=== PATIENT | male | born 1975 | race Caucasian/White ===

== ENCOUNTER 2021-07-03 14:45 | Inpatient (IN) | payer MEDICAID, SELFPAY ==
[2021-07-03 14:46] VITALS: BP 125/102; PULSE 87; RESP 16; TEMP 37.1; O2SAT 98; BMI 21.6
--- NOTE | 2021-07-03 18:27 | EX.ED.SAOD ---
HPI History of Present Illness Chief Complaint: Substance Abuse Informant: patient Narrative Narrative: Patient is a 46-year-old male with history of alcohol dependency presenting for alcohol withdrawal. Patient states he normally drinks 12 pack of tall boy Son light a day. Patient dates his last drink was at 2 PM today and was a can of Son light. Patient states that he has been in rehab 3 times in the last 1 was 2 years ago. He does have a history of delirium tremens, seizures and shaking. He states he wants to quit drinking because he is try to get a new job and is tired of shaking. He smokes a pack and half cigarettes a day. Denies any illicit drug use. He has no other complaints at this time. [facility] Medical History Alcohol abuse Allergy/AdvReac Type Severity Reaction Status Date / Time No Known Allergies Allergy Verified 07/03/21 14:48 Family History (Updated 07/03/21 @ 19:[address] Fly Regan MD) Other Epilepsy Surgical History (Updated 07/03/21 @ 19:[address] Fly Regan MD) History of herniorrhaphy Surgical History no surgical history Social History Smoking Status: Current every day smoker tobacco type: cigarettes ROS ROS ED Constitutional Constitutional ED: Denies chills or fever(s) Eyes Eyes: Denies change in vision ENT ENT ED: Denies ear pain Cardiovascular Cardiovascular: Denies chest pain Respiratory/Chest Respiratory/Chest: Denies cough or dyspnea Gastrointestinal Gastrointestinal: Denies abdominal pain or nausea Genitourinary Genitourinary ED: Denies dysuria Musculoskeletal Musculoskeletal: Denies arthralgias or myalgias Integumentary Denies rash Neurologic Neurologic: Denies headache(s) Psychiatric Psychiatric: Denies anxiety or depression EXAM Physical Exam Const Vital Signs: 07/03/21 14:46 Temperature 98.7 F Temperature Source Temporal Pulse Rate 87 Respiratory Rate 16 Blood Pressure 125/102 H Blood Pressure Mean 109 Pulse Ox 98 Oxygen Delivery Method Room Air Positive well nourished and well developed General Appearance ED: well developed HEENT Reports moist mucous membranes atraumatic Eyes PERRL and EOMs intact bilaterally Neck supple Resp normal respiratory effort and clear to auscultation bilaterally Cardio regular rate, regular rhythm and no murmurs GI soft to palpation, non-tender and non-distended Back/Spine no CVA tenderness Neuro oriented x3 and CN's II-XII intact bilaterally Sensorium / Orientation: alert Motor Exam: Negative for general weakness Psych mental status grossly normal and thought process normal Skin Skin Narrative: Patient has hypopigmentation of the hands and scattering of the extremities. States is been there for 5 years Lesions: no lesions Rashes: no rashes MDM MDM MDM Narrative Medical decision making narrative: Patient is evaluated for alcohol detox. He does not appear to be actively withdrawing. He is given a NicoDerm patch. Screening labs obtained. Patient is excepted to detox. Lab Data Attestation: I reviewed the patient's lab results. Labs: Laboratory Results - last 24 hr 07/03/21 07/03/21 07/03/21 18:10 18:10 18:10 WBC 6.3 RBC 4.13 L Hgb 13.8 Hct 40.7 MCV 98.5 H MCH 33.4 H MCHC 33.9 RDW Std Deviation 45.3 H RDW Coeff of Nya 12.4 Plt Count 432 MPV 8.5 Immature Gran % (Auto) 0.500 Neut % (Auto) 63.1 Lymph % (Auto) 23.1 [place] % (Auto) 10.1 H Eos % (Auto) 2.4 Baso % (Auto) 0.8 Absolute Neuts (auto) 4.0 Absolute Lymphs (auto) 1.46 Nucleated RBC % 0 Sodium Cancelled Potassium Cancelled Chloride Cancelled Carbon Dioxide Cancelled Anion Gap Cancelled BUN Cancelled Creatinine Cancelled Estim Creat Clear Calc Cancelled Est GFR (MDRD) Af Amer Cancelled Est GFR (MDRD) Non-Af Cancelled BUN/Creatinine Ratio Cancelled Glucose Cancelled Calcium Cancelled Total Bilirubin Direct Bilirubin AST ALT Alkaline Phosphatase Total Protein Albumin Globulin Albumin/Globulin Ratio Urine Opiates Screen Urine Methadone Screen Ur Barbiturates Screen Ur Phencyclidine Scrn Ur Amphetamines Screen U Methamphetamin-MDMA U Benzodiazepines Scrn Urine Cocaine Screen U Cannabinoids Screen Ur Drug Screen Comment Ethyl Alcohol 94.0 07/03/21 07/03/21 07/03/21 18:10 18:15 18:26 WBC RBC Hgb Hct MCV MCH MCHC RDW Std Deviation RDW Coeff of Nya Plt Count MPV Immature Gran % (Auto) Neut % (Auto) Lymph % (Auto) [place] % (Auto) Eos % (Auto) Baso % (Auto) Absolute Neuts (auto) Absolute Lymphs (auto) Nucleated RBC % Sodium 138 Potassium 3.9 Chloride 105 Carbon Dioxide 23.0 Anion Gap 10 BUN 3 L Creatinine 0.63 L Estim Creat Clear Calc 145.70 Est GFR (MDRD) Af Amer 175 Est GFR (MDRD) Non-Af 145 BUN/Creatinine Ratio 4.7 L Glucose 83 Calcium 9.4 Total Bilirubin 0.30 0.40 Direct Bilirubin 0.09 AST 31 30 ALT 29 30 Alkaline Phosphatase 96 96 Total Protein 8.0 8.0 Albumin 3.7 3.7 Globulin 4.3 H 4.3 H Albumin/Globulin Ratio 0.9 Urine Opiates Screen NEGATIVE Urine Methadone Screen NEGATIVE Ur Barbiturates Screen NEGATIVE Ur Phencyclidine Scrn NEGATIVE Ur Amphetamines Screen NEGATIVE U Methamphetamin-MDMA NEGATIVE U Benzodiazepines Scrn NEGATIVE Urine Cocaine Screen NEGATIVE U Cannabinoids Screen NEGATIVE Ur Drug Screen Comment Ethyl Alcohol Discharge Plan Triage Chief Complaint: Substance Abuse ED Provider: Tana Pearl Dx/Rx/DC Orders Clinical Impression: Alcohol abuse, Desire for detoxification Primary Care Provider: Care Physician,No Primary Disposition Disposition: Acute Care Hospital [facility]
[2021-07-03 18:29] LABS: Absolute Lymphocyte Count 1.46 X10^3/uL (0.83-4.51); Basophil# 0.05 X10^3/uL; Basophil% 0.8 % (0-1); Eosinophil# 0.15 X10^3/uL; Eosinophils% 2.4 % (0-5); Hematocrit 40.7 % (40-54); Hemoglobin 13.8 g/dL (13.0-16.5); Lymphocyte # 1.46 X10^3/ul (0.83-4.51); Lymphocyte % 23.1 % (19-41); Mean Corp Hgb Conc 33.9 g/dL (32-36); Mean Corpuscular Hgb 33.4 pg (27.0-32.0); Mean Corpuscular Volume 98.5 fL (80-94); Mean Platelet Vol. 8.5 fl (6.2-12.0); Monocyte# 0.64 X10^3/uL; Monocyte% 10.1 % (0-10); NRBC Flagged by Analyzer 0 % (0-5); Neutrophil # 3.99 X10^3/uL (2.7-7.7); Neutrophil % 63.1 % (47-70); Platelet Count 432 K/mm3 (150-450); RBC Distribution Width CV 12.4 % (11.6-14.6); RBC Distribution Width SD 45.3 fl (35.1-43.9); Red Blood Count 4.13 M/mm3 (4.6-6.2); White Blood Count 6.3 K/mm3 (4.4-11.0)
[2021-07-03 18:56] LABS: ALB/GLOB Ratio 0.9 RATIO (0.9-2.4); AST(SGOT) 30 U/L (15-37); Alanine Aminotransfer ALT/SGPT 30 U/L (16-61); Albumin, Serum 3.7 g/dL (3.2-5.0); Alkaline Phosphatase 96 U/L (45-117); Anion Gap 10 (5-15); BUN 3 mg/dL (7-18); BUN/Creat Ratio 4.7 RATIO (10-20); Calcium,Total 9.4 mg/dL (8.5-10.1); Chloride 105 mmol/L (98-107); Creatinine, Serum 0.63 mg/dL (0.70-1.30); EST Glomerular Filtration Rate 145 mL/min (>60); Est Glom Filt Rate - Afr Amer 175 mL/min (>60); Globulin 4.3 g/dL (2.2-4.2); Glucose 83 mg/dL (74-106); Potassium 3.9 mmol/L (3.5-5.1); Sodium Level 138 mmol/L (136-145)
[2021-07-03 18:59] LABS: AST(SGOT) 31 U/L (15-37); Alanine Aminotransfer ALT/SGPT 29 U/L (16-61); Albumin, Serum 3.7 g/dL (3.2-5.0); Alkaline Phosphatase 96 U/L (45-117); Bilirubin, Direct 0.09 mg/dL (0.00-0.30); Globulin 4.3 g/dL (2.2-4.2)
--- NOTE | 2021-07-03 19:08 | HP.PCM.HOS_ITS ---
HPI - General General Date of Admission: 07/03/21 HPI Narrative BRITTA GANN, is a 46 M who presents with a significant history of alcoholism and tobacco abuse who presents to emergency department for desire for detoxification. Patient has been drinking since about age 15. He has been to rehab about 3 times. The last rehab was about 2 years ago. And he was momentarily sober after the last rehab. Reported in the past he has had a seizure from withdrawal. His last drink was few hours before presentation and he denies any withdrawal symptoms at the time of history taking. He denies any past medical history and he denies taking any home medicines. [facility] Medical History Alcohol abuse Seizures Smoker Allergy/AdvReac Type Severity Reaction Status Date / Time No Known Allergies Allergy Verified 07/03/21 20:12 Family History Other Epilepsy Surgical History History of herniorrhaphy Surgical History no surgical history Social History Smoking Status: Current every day smoker tobacco type: cigarettes ROS ROS Narrative Constitutional: Denies fever, chills, fatigue, anorexia and change in weight Eyes: Denies blurry vision, change in eye color, change in vision, discharge from eye(s), double vision, erythema, eye pain, loss of vision or other HEENT: Denies abnormal hearing, dysphagia, ear pain, epistaxis, headache(s), hearing loss, nasal congestion, nasal discharge, post nasal drip, sinus pressure, sore throat or other Cardiovascular: Denies chest pain or palpitations. Denies dyspnea on exertion, orthopnea and paroxysmal nocturnal dyspnea Respiratory/Chest: Denies cough, excessive phlegm production, shortness of breath with exertion and wheezing Gastrointestinal: Denies abdominal pain, coffee ground emesis, constipation, diarrhea, dyspepsia, hematemesis, hematochezia, loose stools, melena, nausea, vomiting or other Genitourinary: Denies burning urination, difficulty urinating, dysuria, h ematuria, nocturia, urinary frequency, urinary hesitancy, urinary incontinence, urinary urgency or other Musculoskeletal: Denies arthralgias, back pain, joint pain, joint stiffness, joint swelling, myalgias, neck pain or other Neurologic: Denies abnormal gait, abnormal speech, confusion, disequilibrium, dizziness, focal weakness, headache(s), numbness, paresthesias, seizure-like activity, seizures, syncope, tingling, tremor(s) or other Psychiatric: Denies anxiety, depression, homicidal ideation, suicidal ideation or other Endocrinology: Denies change in body appearance, cold intolerance, excessive sweating, heat intolerance, polydipsia, polyuria or other Hematologic/Lymphatic: Denies anemia, easy bleeding, easy bruising, lymphadenopathy or other Integumentary: Denies rashes Allergic/Immunologic: Denies rhinitis, hives, eczema, asthma or other Vital Signs Vital Signs Vital Signs: 07/03/21 14:46 Temperature 98.7 F Temperature Source Temporal Pulse Rate 87 Respiratory Rate 16 Blood Pressure 125/102 H Blood Pressure Mean 109 Pulse Ox 98 Oxygen Delivery Method Room Air Weight Weight: 70.307 kg Body Mass Index (BMI) 21.6 Physical Exam Narrative Physical exam: General: Well-nourished, well-developed. Head: Normocephalic, atraumatic, no tenderness Eyes: PERRLA, EOMI ENT, no trauma, moist mucous membranes, no rhinorrhea Neck: Nontender, full range of motion, no spinal tenderness, deformities, step- off CVS: Regular rate and rhythm. S1-S2 present. No murmur, gallop or rub. Respiratory : clear to auscultation bilaterally, chest wall nontender, no wheezing Abdomen: Soft, nontender, nondistended, normal bowel sounds, no masses : Deferred Back: Nontender, no CVA tenderness, no midline spinal tenderness, deformities, step-offs Extremities: Nontender full range of motion, no trauma Skin: Normal color, no trauma, abrasions Neuro: Alert, oriented, cranial nerves II through XII grossly intact. Psychiatry: Normal mood. Normal affect. Not depressed. Not anxious. Results Lab / Micro Data Result Diagrams: 07/03/21 18:10 07/03/21 18:26 Labs: Laboratory Results - last 24 hr 07/03/21 18:10: WBC 6.3, RBC 4.13 L, Hgb 13.8, Hct 40.7, MCV 98.5 H, MCH 33.4 H, MCHC 33.9, RDW Std Deviation 45.3 H, RDW Coeff of Nya 12.4, Plt Count 432, MPV 8.5, Immature Gran % (Auto) 0.500, Neut % (Auto) 63.1, Lymph % (Auto) 23.1, [place] % (Auto) 10.1 H, Eos % (Auto) 2.4, Baso % (Auto) 0.8, Absolute Neuts (auto) 4.0, Absolute Lymphs (auto) 1.46, Nucleated RBC % 0 07/03/21 18:10: Sodium Cancelled, Potassium Cancelled, Chloride Cancelled, Carbon Dioxide Cancelled, Anion Gap Cancelled, BUN Cancelled, Creatinine Cancelled, Estim Creat Clear Calc Cancelled, Est GFR (MDRD) Af Amer Cancelled, Est GFR (MDRD) Non-Af Cancelled, BUN/Creatinine Ratio Cancelled, Glucose Cancelled, Calcium Cancelled 07/03/21 18:10: Total Bilirubin 0.30, Direct Bilirubin 0.09, AST 31, ALT 29, Alkaline Phosphatase 96, Total Protein 8.0, Albumin 3.7, Globulin 4.3 H 07/03/21 18:15: Ur Drug Screen Comment 07/03/21 18:26: Sodium 138, Potassium 3.9, Chloride 105, Carbon Dioxide 23.0, Anion Gap 10, BUN 3 L, Creatinine 0.63 L, Estim Creat Clear Calc 145.70, Est GFR (MDRD) Af Amer 175, Est GFR (MDRD) Non-Af 145, BUN/Creatinine Ratio 4.7 L, Glucose 83, Calcium 9.4, Total Bilirubin 0.40, AST 30, ALT 30, Alkaline Phospha tase 96, Total Protein 8.0, Albumin 3.7, Globulin 4.3 H, Albumin/Globulin Ratio 0.9 Assessment & Plan Assessment/Plan (1) Alcohol abuse: (2) Desire for detoxification: PLAN: Alcohol dependence and desire for detoxification Patient be started on phenobarbital and other adjunctive medications: Gabapentin as needed; dicyclomine as needed; Vistaril as needed; Imodium as needed; tr azodone as needed; Zofran as needed; scheduled thiamine; and schedule folic acid. Monitor CIWA score Urine toxicology was reviewed. Urine toxicology was negative. Alcohol level was 94. Elevated blood pressure diagnosis of hypertension Likely secondary to alcohol withdrawal. As needed metoprolol ordered. If blood pressure remains elevated with as needed metoprolol or start patient on schedule d metoprolol and probably clonidine. Tobacco abuse Counseled Nicotine patch prescribed. DVT prophylaxis Low risk Encourage to ambulate Charges/Coding Visit Charges Inpatient E&M: 90462 Init Hosp L3
[2021-07-03 19:10] VITALS: BP 176/126; PULSE 76; RESP 16; TEMP 37.1; O2SAT 98
[2021-07-03 19:10] LABS: Amphetamine Urine VISTA NEGATIVE (<1000 ng/mL); Barbiturate Urine VISTA NEGATIVE (< 200 ng/mL); Benzodiazepine Urine VISTA NEGATIVE (< 200 ng/mL); Cocaine Urine VISTA NEGATIVE (< 300 ng/mL); Ecstacy Urine VISTA NEGATIVE (< 500 ng/mL); Methadone Urine VISTA NEGATIVE (< 300 ng/mL); PCP Urine VISTA NEGATIVE (< 25 ng/mL); THC Urine VISTA NEGATIVE (< 50 ng/mL); Vista UDS pH Range 6
[2021-07-03 19:13] VITALS: BP 176/116
--- NOTE | 2021-07-03 19:15 | NURSING ---
DR BEACH AWARE OF HIGH BP AND WILL PUTIN ORDERS
--- NOTE | 2021-07-03 19:35 | CM.ED ---
SOCIAL WORK Referral Source: Dr. Pearl Reason for Consult: Substance abuse-requesting detox from alcohol Patient reports drinks 12 pack beer/day. Patient states last drink was prior to arrival. Patient being admitted to [facility]. Addiction Therapist, Milvia notified of admission and will be in tomorrow to assess patient. Plan: JULIÁN Bailey MSW, FIREMAN
[2021-07-03 19:47] VITALS: BP 148/111
[2021-07-03 20:16] VITALS: BP 138/93; PULSE 78; RESP 20; TEMP 37.1; O2SAT 99
[2021-07-03 20:22] VITALS: BMI 21.4
[2021-07-03] MEDS: Phenobarbital 32.4 MG Tablet 64.8 MG PO (20:30)
--- NOTE | 2021-07-03 21:37 | PCS.PANDOC ---
PANDEMIC DOCUMENTATION INITIATED: Date: 02/13/2021 Time: 1900 Emergency documentation initiated 07/03/21 @ 2100
[2021-07-04 01:29] VITALS: BP 132/89; PULSE 75; RESP 16; TEMP 37.1; O2SAT 99
[2021-07-04] MEDS: Phenobarbital 32.4 MG Tablet 64.8 MG PO ×6 (01:30→22:18)
[2021-07-04 05:35] VITALS: BP 140/102; PULSE 60; RESP 16; TEMP 36.8; O2SAT 99
--- NOTE | 2021-07-04 07:41 | PN.HOSP_ITS ---
Subjective Subjective Admitted for alcohol withdrawal symptoms stabilization. Patient is a desire to remain sober. Last rehab about 2 years ago he was sober for small period of time. History of withdrawal seizures in the past. Objective Data Objective Data Vital Signs: Vital Signs Temp Pulse Resp BP Pulse Ox 98.2 F 60 16 140/102 H 99 07/04/21 05:35 07/04/21 05:35 07/04/21 05:35 07/04/21 05:35 07/04/21 05:35 Oxygen Delivery Method Room Air Weight: 153 lb 14.122 oz Body Mass Index (BMI) 21.4 Intake & Output: Intake and Output for Last 24 Hours 07/02/21 07/03/21 07/04/21 23:59 23:59 23:59 Intake Total 600 / 600 Balance 600 / 600 Lab / Micro Data Result Diagrams: 07/03/21 18:10 07/03/21 18:26 Labs: Laboratory Results - last 24 hr 07/03/21 18:10: WBC 6.3, RBC 4.13 L, Hgb 13.8, Hct 40.7, MCV 98.5 H, MCH 33.4 H, MCHC 33.9, RDW Std Deviation 45.3 H, RDW Coeff of Nya 12.4, Plt Count 432, MPV 8.5, Immature Gran % (Auto) 0.500, Neut % (Auto) 63.1, Lymph % (Auto) 23.1, [place] % (Auto) 10.1 H, Eos % (Auto) 2.4, Baso % (Auto) 0.8, Absolute Neuts (auto) 4.0, Absolute Lymphs (auto) 1.46, Nucleated RBC % 0 07/03/21 18:10: Sodium Cancelled, Potassium Cancelled, Chloride Cancelled, Carbon Dioxide Cancelled, Anion Gap Cancelled, BUN Cancelled, Creatinine Cancelled, Estim Creat Clear Calc Cancelled, Est GFR (MDRD) Af Amer Cancelled, Est GFR (MDRD) Non-Af Cancelled, BUN/Creatinine Ratio Cancelled, Glucose Cancelled, Calcium Cancelled 07/03/21 18:10: Ethyl Alcohol 94.0 07/03/21 18:10: Total Bilirubin 0.30, Direct Bilirubin 0.09, AST 31, ALT 29, Alkaline Phosphatase 96, Total Protein 8.0, Albumin 3.7, Globulin 4.3 H 07/03/21 18:15: Urine Opiates Screen NEGATIVE, Urine Methadone Screen NEGATIVE, Ur Barbiturates Screen NEGATIVE, Ur Phencyclidine Scrn NEGATIVE, Ur Amphetamines Screen NEGATIVE, U Methamphetamin-MDMA NEGATIVE, U Benzodiazepines Scrn NEGATIVE, Urine Cocaine Screen NEGATIVE, U Cannabinoids Screen NEGATIVE, Ur Drug Screen Comment 07/03/21 18:26: Sodium 138, Potassium 3.9, Chloride 105, Carbon Dioxide 23.0, Anion Gap 10, BUN 3 L, Creatinine 0.63 L, Estim Creat Clear Calc 145.70, Est GFR (MDRD) Af Amer 175, Est GFR (MDRD) Non-Af 145, BUN/Creatinine Ratio 4.7 L, Glucose 83, Calcium 9.4, Total Bilirubin 0.40, AST 30, ALT 30, Alkaline Phosphatase 96, Total Protein 8.0, Albumin 3.7, Globulin 4.3 H, Albumin/Globulin Ratio 0.9 Micro: Microbiology 07/03/21 18:10 Nasal Secretion SARS-CoV-2 Antigen (Rapid) - Final Physical Exam Narrative General: Alert, Oriented x3, Cooperative HEENT: Atraumatic, PERRLA, EOMI, Normocephalic Oral: No Gingival or Mucosal Lesions/ Ulcerations Neck: Supple, No JVD, Negative Carotid Bruits Lungs: Air entry equal in bilateral lung bases. No crepitation/rhonchi Cardiovascular: Regular rate, Regular Rhythm, Normal S1, Normal S2, No murmurs Abdomen: Bowel Sounds Present, Soft, Non Tender, Non-Distended : No renal angle tenderness. No suprapubic tenderness. Extremities: No edema, Capillary Refill Less than 3 Seconds Skin: No rashes, No breakdown Musculoskeletal: No Tenderness to Palpation of Joints or Extremities Neurological: Cranial nerves II-XII grossly intact, DTR 2+/4 and Symmetrical, Neuro grossly intact Psych/Mental Status: Anxious, restless Assessment & Plan Assessment/Plan (1) Alcohol abuse: (2) Desire for detoxification: PLAN: Acute alcohol withdrawal syndrome with chronic alcohol use disorder with dependence, and tolerance and failed alcohol rehab in the past Patient is admitted on [facility] floor. He is on phenobarbital and other adjunctive medications which includes gabapentin as needed; dicyclomine as needed; Vistaril as needed; Imodium as needed; trazodone as needed; Zofran as needed; scheduled thiamine; and schedule folic acid. Monitor CIWA score Urine toxicology was negative. Alcohol level was 94. 2. Elevated blood pressure, probably high blood pressure from alcohol withdrawal syndrome: Started on clonidine as needed for systolic blood pressure more than 150 mmHg. Current BP 126/74. Need outpatient blood pressure monitoring to diagnose or rule out hypertension 3 tobacco abuse Counseled Nicotine patch prescribed. DVT prophylaxis Low risk Encourage to ambulate Charges/Coding Visit Charges Inpatient E&M: 80550 Subs Hosp L2
[2021-07-04 08:49] VITALS: BP 127/98; PULSE 82; RESP 18; TEMP 37.2; O2SAT 97
[2021-07-04] MEDS: Folic Acid 1 MG Tablet PO (08:54)
--- NOTE | 2021-07-04 12:08 | ADDICTION ---
This sba underwriter met with PT to conduct ASAM, MSE, AUDIT assessments and to plan for d/c. PT A+Ox4 and participated actively. All assessments completed and placed in PT's chart. PT plans to f/u with [facility] for follow-up treatment services. PT did not indicate a need for transportation post d/c from [facility].
[2021-07-04 13:10] VITALS: BP 126/84; PULSE 83; RESP 18; O2SAT 98
[2021-07-04] MEDS: Thiamine Hydrochloride 100 MG Tablet PO (13:13)
[2021-07-04 17:06] VITALS: BP 140/99; PULSE 78; RESP 18; TEMP 37.1; O2SAT 99
[2021-07-04] MEDS: traZODone 100 MG Tablet PO (22:19)
[2021-07-04 22:20] VITALS: BP 116/84; PULSE 72; RESP 16; TEMP 36.7; O2SAT 100
[2021-07-05] MEDS: Phenobarbital 32.4 MG Tablet 64.8 MG PO ×6 (01:48→21:51)
[2021-07-05 05:50] VITALS: BP 126/84; PULSE 63; RESP 16; TEMP 36.7; O2SAT 100
[2021-07-05 08:46] VITALS: BP 115/80; PULSE 94; RESP 16; TEMP 36.8; O2SAT 98
[2021-07-05] MEDS: Folic Acid 1 MG Tablet PO (08:50)
[2021-07-05] MEDS: Thiamine Hydrochloride 100 MG Tablet PO (08:50)
--- NOTE | 2021-07-05 10:03 | ADDICTION ---
This worker met with PT today to discuss D/c planning. Client has an appointment at [facility] in [place] for AoD treatment on 07/07 @ 12:30. He will need discharged by 9am on Saturday. His sister, Sejal will be picking him up and providing transportation.
[2021-07-05 12:33] VITALS: BP 109/80; PULSE 84; RESP 18; TEMP 36.8; O2SAT 99
[2021-07-05 16:58] VITALS: BP 132/63; PULSE 92; RESP 18; TEMP 36.9; O2SAT 97
--- NOTE | 2021-07-05 17:25 | PN.HOSP_ITS ---
Subjective Subjective Patient states he is feeling well. No signs of alcohol withdrawal at this time. Denies any internal tremor or nausea/vomiting. No diarrhea. Objective Data Objective Data Vital Signs: Vital Signs Temp Pulse Resp BP Pulse Ox 98.4 F 92 18 132/63 H 97 07/05/21 16:58 07/05/21 16:58 07/05/21 16:58 07/05/21 16:58 07/05/21 16:58 Oxygen Delivery Method Room Air Weight: 69.8 kg Body Mass Index (BMI) 21.4 Intake & Output: Intake and Output for Last 24 Hours 07/03/21 07/04/21 07/05/21 23:59 23:59 23:59 Intake Total 600 / 700 100 / 100 Balance 600 / 700 100 / 100 Lab / Micro Data Result Diagrams: 07/03/21 18:10 07/03/21 18:26 Micro: Microbiology 07/03/21 18:10 Nasal Secretion SARS-CoV-2 Antigen (Rapid) - Final Physical Exam Const alert, oriented x3, no apparent distress, average body habitus and healthy appearing Constitutional Narrative: Middle-aged white male who appears older than stated age, sitting up in bed, watching television, appears comfortable, nontoxic Exam Limitations: no limitations HEENT head/scalp atraumatic, moist oral mucous membranes and oropharynx normal Head and Scalp: normocephalic Resp normal respiratory effort, no retractions, no use of accessory muscles and clear to auscultation bilaterally Auscultation: Negative for crackles, rales, rhonchi or wheezes Cardio regular rate, regular rhythm, S1 normal heart sound, S2 normal heart sound, no murmurs, no rub, no gallops, no clicks and no JVD GI normal to inspection, nondistended, normoactive bowel sounds, soft to palpation, non-tender and non-distended Extremity no clubbing, cyanosis or edema Peripheral Pulses: Yes pulses 2+ throughout Neuro oriented x3, moves all extremities and no focal motor deficits Sensorium / Orientation: awake and alert Psych affect normal Assessment & Plan Assessment/Plan (1) Alcohol abuse: (2) Desire for detoxification: (3) Elevated blood pressure reading: PLAN: Acute alcohol withdrawal -Continue phenobarb taper -Supportive medications -[facility] protocol -Patient is planning to follow-up with [facility] addiction and recovery and has an appointment on Saturday -Probable discharge home tomorrow 07/06/2021 Elevated blood pressure -Blood pressure was elevated on admission but has improved -suspect initial reading was related to withdraw -Commend outpatient follow-up for ambulatory monitoring Tobacco abuse -Recommend discontinuation/cessation -Nicotine patch is available DVT prophylaxis -Low risk -Early ambulation protocol CODE STATUS -Full code Charges/Coding Visit Charges Inpatient E&M: 89040 Subs Hosp L2
[2021-07-05] MEDS: traZODone 100 MG Tablet PO (21:51)
[2021-07-05 21:56] VITALS: BP 115/86; PULSE 72; RESP 16; TEMP 36.4; O2SAT 98
[2021-07-05 22:00] VITALS: RESP 14
[2021-07-06] MEDS: Phenobarbital 32.4 MG Tablet 64.8 MG PO ×5 (01:06→16:26)
[2021-07-06 04:59] VITALS: BP 106/65; PULSE 65; RESP 14; TEMP 36.7; O2SAT 99
[2021-07-06 09:00] VITALS: BP 107/76; PULSE 68; RESP 16; TEMP 36.8; O2SAT 99
[2021-07-06] MEDS: Folic Acid 1 MG Tablet PO (09:32)
[2021-07-06] MEDS: Thiamine Hydrochloride 100 MG Tablet PO (09:32)
--- NOTE | 2021-07-06 11:10 | PCM.DC.SUM ---
Providers Date of Admission: 07/03/21 Primary Care Physician: Effie Primary Care Phys Reason For Visit: DESIRE FOR DETOXICATION Diagnosis Discharge Diagnosis (1) Alcohol abuse: Status: Acute Code(s): F10.10 - Alcohol abuse, uncomplicated (2) Desire for detoxification: Status: Acute (3) Elevated blood pressure reading: Status: Acute Code(s): R03.0 - Elevated blood-pressure reading, without diagnosis of hypertension Hospital Course Operations None Procedures None Summary of Care Provided Minutes Spent on Discharge: 25 Hospital Course: is a 46-year-old white male who presented to the emergency department was [facility] on 07/03/2020 requesting detox from alcohol. On admission he reported he had been drinking since approximately age 15 and had been rehab approximately 3 times in that time period. His last bout of rehab was approximately 2 years ago and he had a short stent of sobriety but relapsed fairly quick after that. His last drink was a few hours prior to presentation and he denied any withdrawal symptoms at the time of presentation. He was admitted to the medical floor and placed on a phenobarbital taper supportive medications were given including thiamine and folate. He was seen by [facility] addiction medicine and his plan at discharge is to follow-up at [facility] after discharge. He has an appointment on Saturday at 1230. His overall detox was uneventful and he was discharged home on 07/06/2021 in stable condition with instructions to follow-up as scheduled tomorrow. Discharge diagnoses: Acute alcohol withdrawal Elevated blood pressure-resolved Tobacco abuse Physical Exam Const alert, oriented x3, no apparent distress, average body habitus and healthy appearing Constitutional Narrative: Middle-aged white male who appears older than stated age, lying in bed sleeping but awakens easily, appears comfortable, nontoxic General Appearance: cooperative, comfortable, well kempt and well developed Orientation / Consciousness: awake Exam Limitations: no limitations HEENT normocephalic, head/scalp atraumatic, moist oral mucous membranes and oropharynx normal HEENT Narrative: Mildly hard of hearing Resp normal respiratory effort, no retractions, no use of accessory muscles and clear to auscultation bilaterally Auscultation: Negative for crackles, rales, rhonchi or wheezes Cardio regular rate, regular rhythm, S1 normal heart sound, S2 normal heart sound, no murmurs, no rub, no gallops, no clicks and no JVD GI normal to inspection, nondistended, normoactive bowel sounds, soft to palpation, non-tender and non-distended Extremity no clubbing, cyanosis or edema Neuro oriented x3, moves all extremities and no focal motor deficits Sensorium / Orientation: awake and alert Speech: speech normal Psych affect normal Weight / BMI Weight Weight: 69.8 kg Body Mass Index (BMI) 21.4 ABG / Lab / Microbiology Data Result Diagrams: 07/03/21 18:10 07/03/21 18:26 Microbiology: Microbiology 07/03/21 18:10 Nasal Secretion SARS-CoV-2 Antigen (Rapid) - Final D/C Instructions Discharge Diet: No restrictions Discharge Activity: Return to Normal Activity Meaningful Use Info Meaningful Use Diagnoses (Choose all that apply): None applicable Discharge Plan Admission Admit Date/Time: 07/03/21 19:04 Primary Reason for Your Visit: Acute alcohol withdrawal Attending Provider: Sue Santizo Primary Care Provider: Care Physician,No Primary Discharge Orders/Prescriptions Referrals / Follow Up: Care Physician,No Primary [Primary Care Provider] - Disposition Disposition (needs filled in before D/C Order can be placed): Home, Self Care Charges/Coding Visit Charges Inpatient E&M: 21207 Disch Hosp
[2021-07-06 12:00] VITALS: BP 114/81; PULSE 81; RESP 16; TEMP 37; O2SAT 99
== END 2021-07-06 18:04 | disposition home or self-care (01) | DRG 775 ==
LOC: ED 18:38 → MS2 19:25
PROVIDERS: Admitting Provider Hospitalist; Emergency Provider Emergency Medicine; Visit Provider Internal Medicine
DX: F10.239 Alcohol dependence with withdrawal, unspecified (principal); F17.210 Nicotine dependence, cigarettes, uncomplicated; Y90.4 Blood alcohol level of 80-99 mg/100 ml; R03.0 Elevated blood-pressure reading, without diagnosis of hypertension
CPT/HCPCS: 80053; 80076; 80307; 82077; 85025; 87426; 99284; J7030